=== PATIENT | male | born 1995 | race Caucasian/White ===

== ENCOUNTER 2019-12-23 10:22 | Emergency (ER) | payer OTHER ==
[~2019-12-23] VITALS: Ht 182.9 cm; Wt 84.1 kg
[2019-12-23 11:19] LABS: APPEARANCE,URINE CLEAR (CLEAR); BILIRUBIN,URINE NEGATIVE (NEGATIVE); GLUCOSE, URINE (UA) NEGATIVE (NEGATIVE); KETONES,URINE NEGATIVE (NEGATIVE); LEUKOCYTE ESTERASE ,URINE NEGATIVE (NEGATIVE); NITRATE,URINE NEGATIVE (NEGATIVE); OCCULT BLOOD,URINE NEGATIVE (NEGATIVE); PROTEIN,URINE NEGATIVE (NEGATIVE); UROBILINOGEN,URINE 0.2 mg/dL (<=1.0)
[2019-12-23 13:24] VITALS: BP 127/51
== END 2019-12-23 13:25 | disposition home or self-care (01) ==
LOC: EDSEX 10:23 → EMS 10:23
DX: N50.3 Cyst of epididymis (principal)
CPT/HCPCS: 76870; 87491; 87591